=== PATIENT | male | born 1945 | race Caucasian/White ===

== ENCOUNTER 2020-10-19 00:27 | Inpatient (IN) | payer OTHER, MEDICARE ==
[~2020-10-19] VITALS: Ht 172.7 cm; Wt 56.7 kg
[~2020-10-19 00:27] MED LIST: ASPI325 PO; BACL10 PO; CLOP75 PO; HYDACE5 PO; LISI5 PO; MARIJUANA INH; METO50 PO; NICO21TP TOP; NORT25 PO; Prednisone20 MG PO; ROSU10TA PO; SIMV10 PO
[2020-10-19 02:02] LABS: Mean Corpuscular HGB 36.1 pg (26.0-34.0); Mean Corpuscular HGB Conc 30.7 g/dL (31.5-36.5); Mean Corpuscular Volume 118 fL (80-100); Mean Platelet Volume 11.2 fL (9.1-12.4); NRBC ABSOLUTE 0.98 K/mm3 (0.00-0.02); RDW Coefficient Variation 17.2 % (11.7-14.2); RDW Standard Deviation 70.4 fL (35.1-46.3); Red Blood Cell Count 0.97 M/mm3 (4.30-5.90)
[2020-10-19 02:08] LABS: Platelet Count 50 K/mm3 (150-400); White Blood Cell Count 95.34 K/mm3 (4.00-11.30)
[2020-10-19 02:09] LABS: Hematocrit 11.4 % (37.0-53.0); Hemoglobin 3.5 g/dL (13.5-17.5)
[2020-10-19 02:14] LABS: International Normalized Ratio 1.7; Prothrombin Time Results 17.7 Sec (9.7-11.5)
[2020-10-19 02:17] LABS: Alanine Aminotransfer (ALT/SGP 67 U/L (12-78); Albumin, Blood 2.3 g/dL (3.4-5.0); Albumin/Globulin Ratio 0.5 (0.8-1.8); Alk Phos 69 U/L (50-136); Anion Gap 12 mmol/L (6-16); Aspartate Aminotrans (AST/SGOT 136 U/L (12-37); Bilirubin, Total 0.8 mg/dL (0.1-1.0); Blood Urea Nitrogen 30 mg/dL (8-24); Bun/Creatinine Ratio 36.4 (12.0-20.0); CO2, Blood 21 mmol/L (21-32); Chloride, Blood 110 mmol/L (98-108); Creatinine, Blood 0.82 mg/dL (0.60-1.20); Globulin, Blood 4.3 g/dL (2.2-4.0); Glomerular Filtration Rate >60 (60-); Glucose, Blood 149 mg/dL (70-99); Potassium, Blood 3.8 mmol/L (3.5-5.5); Sodium, Blood 143 mmol/L (136-145); Total Protein, Blood 6.6 g/dL (6.4-8.2); Troponin I 0.074 ng/mL (0.000-0.040)
[2020-10-19 02:23] LABS: Ethanol (Alcohol), Blood, Med <3 mg/dL; Magnesium, Blood 2.6 mg/dL (1.6-2.4)
[2020-10-19 02:28] LABS: BASOPHILS PERCENT MAN 0 % (0-2); BLASTS PERCENT MAN 42 % (0-0); EOSINOPHILS PERCENT MAN 0 % (0-6); LYMPHOCYTES ABSOLUTE MAN 26.69 K/mm3 (0.84-5.20); LYMPHOCYTES PERCENT MAN 28 % (21-46); MONOCYTES ABSOLUTE MAN 24.78 K/mm3 (0.16-1.47); MONOCYTES PERCENT MAN 26 % (4-13); MYELOCYTE ABSOLUTE MAN 0.95 K/mm3 (0.00-0.00); MYELOCYTE PERCENT MAN 1 % (0-0); PROMYELOCYTE ABSOLUTE MAN 0.95 K/mm3 (0.00-0.00); PROMYELOCYTE PERCENT MAN 1 % (0-0); SEG NEUTROPHILS PERCENT MAN 2 % (41-73); TOTAL CELLS COUNTED 100
[2020-10-19] MEDS ORDERED: AMLO5 PO (03:35)
[2020-10-19] MEDS ORDERED: PROP10 PO (03:35)
[2020-10-19 05:10] LABS: Influenza A, PCR Negative (NEGATIVE); Influenza B, PCR Negative (NEGATIVE); Resp Syncytial Virus, PCR Negative (NEGATIVE); SARS-Cov-2 (COVID-19) PCR, MMC Negative (NEGATIVE)
[2020-10-19 06:47] LABS: Anion Gap 9 mmol/L (6-16); Blood Urea Nitrogen 27 mg/dL (8-24); Bun/Creatinine Ratio 38.2 (12.0-20.0); CO2, Blood 20 mmol/L (21-32); Calcium, Blood 7.2 mg/dL (8.5-10.1); Chloride, Blood 115 mmol/L (98-108); Creatinine, Blood 0.71 mg/dL (0.60-1.20); Glomerular Filtration Rate >60 (60-); Glucose, Blood 157 mg/dL (70-99); Potassium, Blood 3.8 mmol/L (3.5-5.5); Sodium, Blood 144 mmol/L (136-145)
[2020-10-19 06:51] LABS: Source, Urine Catheter
[2020-10-19 06:59] LABS: Bilirubin, Urine Neg (Neg); Blood, Urine 3+ (Neg); Glucose Qualitative, Urine Neg (Neg); Ketones, Urine Neg (Neg); Leukocyte Esterase, Urine Neg (Neg); Nitrite, Urine Neg (Neg); Protein, Urine 1+ (Neg); Specific Gravity, Urine 1.015 (1.003-1.022); Urobilinogen, Urine 1+ (Normal)
[2020-10-19 07:04] LABS: Appearance, Urine Clear (Clear); Color, Urine Yellow (P-Yellow)
[2020-10-19 07:06] LABS: White Blood Cells, Urine 0-2 /hpf (0-5)
[2020-10-19 07:07] LABS: Bacteria Few /hpf; Squamous Epithelial Cells Rare /hpf (Few)
--- NOTE | 2020-10-19 08:29 | NUR ---
PT RECEIVED FROM ED WITH LEILA AND CALLIE IN ATTENDANCE WITH 3RD BAG OF BLOOD INFUSING. PT IN SEVERE RESPIRATORY DISTRESS, FIDGETY AND UNCOMFORTALBE. UNABLE TO ANSWER QUESTIONS, OTHER THAN "YES" TO HIS NAME. CONTACTED, ORDERS RECEIVED FOR LASIX, BIPAP, AND POSEY. PHONE CALL TO TO DISCUSS CARE. PALLIATIVE CARE CALLED IN, ROSALINDA ARRIVES. IV MORPHINE AND ATIVAN GIVEN FOR PT RELIEF. BREATHING AT 32, RESTLESS IN BED. AFTER MEDICATION PT HAS SETTLED IN AND IS BREATHING AT 28 WITH BIPAP. PT NOTED TO GO IN A BIJEMINAL RHYTHM DURING HIS AGITATION. PT NOW RUNNING LOW 100'S, BP ELEVATED. TEMP 99.0 VIA TEMP PROBE.
--- NOTE | 2020-10-19 08:30 | NUR ---
PT ADMITTED TO ICU IN SEVERE RESPIRATORY DISTRESS. PT CONFUSED AND AGITATED-UNABLE TO PERFORM SUICIDE RISK ASSESSMENT AT THIS TIME.
--- NOTE | 2020-10-19 08:35 | NUR ---
PT MADE COMFORT CARE STATUS. PT MADE HIGH RISK FOR SUICIDE BECAUSE HE WAS NOT ABLE TO ANSWER QUESTIONS WHEN THE INITIAL ASSESSMENT WAS DONE. HE IS NOT ABLE TO ANSWER ANY QUESTIONS AT THIS TIME. PT HAS BEEN MADE COMFORT CARE BY DR. PEÑA AND DOES NOT NEED MONITIORING/FURTHER SUICIDE PRECAUTIONS.
--- NOTE | 2020-10-19 08:53 | NUR ---
Called to ICU 4 for assistance with Omari who is extremely aggitated and restless and confused. Nursing and Dr. Magdaleno at bedside. Dr. Magdaleno has just spoken with pt's who has opted for comfort care. Dr. Magdaleno states pathologist just contacted her shortly before my arrival and pt has acute leukemia. Emotional support given to Omari. Stayed at his bedside while nursing gave morphine and ativan IV. Pt experienced relief from aggitation and restlessness after medications were administered. Pt repositioned for comfort. He is currently looking more relaxed at this time. Spoke with Dr. Magdaleno who reuqest that this gag writer place comfort care order set. Will check in with pt and nursing in a little while and call his with an update. PC to continue to follow. Omari has a history of HTN, RI, chronic pain, PTSD, dystonia dykinesia, TIAs, possible brain tumor. He has not had any recent medical care according to the admitting H&P. He has been increasing SOB, confused unable to perform his own ADLs and has had no appetite for the last few days. New diagnosis of leukemia. He has now been transitioned to comfort care.
[2020-10-19 09:11] LABS: Source, Urine Catheter
[2020-10-19 09:16] LABS: Bilirubin, Urine Neg (Neg); Blood, Urine 2+ (Neg); Glucose Qualitative, Urine Neg (Neg); Ketones, Urine Neg (Neg); Leukocyte Esterase, Urine Neg (Neg); Nitrite, Urine Neg (Neg); Protein, Urine Neg (Neg); Specific Gravity, Urine 1.015 (1.003-1.022); Urobilinogen, Urine NORM (Normal)
[2020-10-19 09:22] LABS: Appearance, Urine Clear (Clear); Color, Urine Yellow (P-Yellow)
[2020-10-19 09:23] LABS: White Blood Cells, Urine 0-2 /hpf (0-5)
[2020-10-19 09:24] LABS: Bacteria Rare /hpf; Squamous Epithelial Cells Rare /hpf (Few)
--- NOTE | 2020-10-19 11:55 | NUR ---
REPORT GIVEN TO HEIDI CHOUDHURY ON MEDICAL FLOOR. PT IS CURRENTLY RESTING MEDICATED, ON 2L O2 VIA NC, SATS 97%. BREATHING EASIER, PT CONTINUES WITH POSEY IN PLACE. HEIDI PERALTA SPOKE WITH PATIENTS AND UPDATED HER ON THE SITUATION AND THE TRANSFER TO MEDICAL FLOOR.
--- NOTE | 2020-10-19 13:46 | NUR ---
Omari is now in room 342 and when this assembly instructions writer checked on him at 1300 he was resting comfortably. Resp are not labored at this time. He doesn't appear to be in any discomfort. Spoke with Dr. Magdaleno who reports that she talked with Neyda, his , about his leukemia diagnosis and Neyda has questions about the next steps. Phone call to Neyda. Answered her questions. She would like information on home pricing. The home good list was sent to her. Emotional support given. They live in [place] and it is a 100 mile round trip from their home to [facility]. She reports that the last couple days of caring for Omari at home were very difficult and she was very grateful that he was able to be admitted and is resting comfortably. Briefly discussed comfort care in the hospital vs. hospice at home. At this time Nedya is not interested in hospice at home. Explained to her that with his rapid decline he may likely pass away in the hospital. If he stabilizes we will need to revisit hospice as an option. She voiced understanding. Encouraged Nyeda to call PC or medical floor for any further questions, updates, or if she would like us to go hold the phone up to his ear in his room for her to talk to him. PC will continue to follow for symptom management and family support.
--- NOTE | 2020-10-19 15:58 | NUR ---
Checked in on Omari again. He is resting and appears comfortable at this time. Neyda called back to the PC office and is requesting [facility] in [place] for the mortuary when Omari passes. rn progressive care Kelly and nursing supervisor files updated on mortuary choice. Neyda has no further questions or concerns at this time. PC to continue to follow.
--- NOTE | 2020-10-19 16:44 | NUR ---
SHIFT SUMMARY RECEIVED PT TO 342 THIS AFTERNOON FROM ICU 4. RECEIVED REPORT FROM CIERA GORDON. PT ADMITTED AFTER BEING SENT TO ER BY FOR AMS, SOB, AND INCREASED AGITATION. PT WITH POOR APPETITE AND SEVERE AMS. PT FOUND TO HAVE LEUKEMIA AND CHANGED TO C/C BY PT'S . PALLIATIVE CARE RN HERE TO CK ON PT AFTER ARRIVAL TO . PT'S CALLED BY DR PEÑA AND PALLIATIVE CARE WELL. UPDATED AND QUESTIONS ANS. PT HAS CONTINUED TO REST QUIETLY TO PRESENT. WILL CONTINUE TO MONITOR.
--- NOTE | 2020-10-19 18:39 | NUR ---
PT BECOMING RESTLESS AND AGITATED, MOANING WITH REPOSITIONING. PT MEDICATED FOR PAIN AND AGITATION. NOW APPEARS TO BE CALM, AND RESTING QUIETLY.
--- NOTE | 2020-10-19 19:38 | NUR ---
RESTNG QUIETLY.CALL LIGHT IN REACH
--- NOTE | 2020-10-20 00:56 | NUR ---
RESTING QUIETLY. POSYE DRAINING. NO NOTED S/S ACUTE DISTRESS. CALL LIGHT IN REACH
--- NOTE | 2020-10-20 00:57 | NUR ---
CONTINUES TO REST QUIETLY. NO S/S PAIN. CALL LIGHT IN REACH
--- NOTE | 2020-10-20 03:52 | NUR ---
WAS CALLING OUT, SEEMED IN PAIN, MEDICATION ADMINISNTERED - SEE MAR FOR DETAILS. CURRENTLY RSTING QUIETLY. CALL LIGHT IN REACH
--- NOTE | 2020-10-20 03:53 | NUR ---
RESTING QUIETLY. CALL LIGHT IN REACH
--- NOTE | 2020-10-20 04:05 | NUR ---
SHIFT SUMMARY CONTINUES ON COMFORT CARE. HAS RECEIVED ANALGESIC EARLIER FOR APPARENT EPISODE OF PAIN AND AGITATION. AFTER PAIN MED GIVEN, SEEMED TO CALM AND IN CURRENTLY RESTING QUIETLY. CALL LIGHT IN REACH. RAILS UP X 3.
--- NOTE | 2020-10-20 06:26 | NUR ---
MEDICATED FOR PAIN. VERBAL REASSURANCE GIVEN. REPOSITIONED. CALL LIGHT IN REACH
--- NOTE | 2020-10-20 17:05 | NUR ---
SHIFT SUMMARY PT MEDICATED FOR PAIN X2 THIS SHIFT AND ANXIETY X1 PER EMAR. PT HAS BEEN IN BED, BUT ATTEMPTED TO LEAVE THE BED MULTIPLE TIMES THIS SHIFT WITHOUT STAFF. THIS RN SPOKE WITH PT'S VIA THE PHONE WHO STATED SHE HOPES TO SEE HIM HERE SOON. PT REPOSITIONED FREQUENTLY. NO VISITORS IN TODAY. PT IS IN THE BED, ALARM ON, CALL LIGHT IN REACH.
--- NOTE | 2020-10-20 19:10 | NUR ---
RESTING WITH DEEP RESPIRATIONS. REPOSITIONED. POSEY DRAINING. CALL LIGHT IN REACH
--- NOTE | 2020-10-20 22:03 | NUR ---
RESTING QUIETLY. DEEP RESPS. NO NOTED S/S PAIN. CALL LIGHT IN REACH. HOB ELEVATED FOR COMFORT
--- NOTE | 2020-10-20 23:03 | NUR ---
RESTING QUIETLY. CALL LIGHT IN REACH
--- NOTE | 2020-10-21 03:55 | NUR ---
RESTING QUIETLY. CALL LIGHT IN REACH
--- NOTE | 2020-10-21 03:56 | NUR ---
RESTING QUIETLY, NOTE PT TURNING SELF AT TIMES DURING ROUNDING. CALL LIGHT IN REACH
--- NOTE | 2020-10-21 03:57 | NUR ---
RESTING QUIETLY ON BACK. CALL LIGHT IN REACH
--- NOTE | 2020-10-21 05:37 | NUR ---
REPOSITIONED. CONTINUES TO REST QUIETLY. NO NOTED MOANING. NO NOTED SIGNS OF PAIN. CALL LIGHT IN REACH
--- NOTE | 2020-10-21 17:33 | NUR ---
SHIFT SUMMARY PATIENT IS COMFORT CARE. PATIENT TURNS HEAD WHEN FIRST SPOKEN TO UPON ENTERING THE ROOM, THEN UNABLE TO MAINTAIN ATTENTION. PATIENT WITHOUT SIGNS OF RECOGNITION OR RESPONSE TO QUESTIONS THIS SHIFT. PATIENT MEDICATED 1X FOR PAIN AND 1X FOR AGITATION THIS SHIFT. PATIENT TURNED REGULARLY THROUGHOUT THIS SHIFT. PATIENT'S AT BEDSIDE THIS AFTERNOON. PATIENT CURRENTLY LAYING IN BED RESTING.
--- NOTE | 2020-10-21 19:22 | NUR ---
RESTING QUIETLY. NO NOTED S/S ACUTE DISTRESS. CALL LIGHT IN REACH
--- NOTE | 2020-10-21 22:55 | NUR ---
RESTING QUIETLY, WAS REPOSITIONED. CALL LIGHT IN REACH
--- NOTE | 2020-10-21 22:56 | NUR ---
DURING POSITIONING, NOTED TEAR IN RIGHT EYE, PAIN MED ADMINISTERED - SEE DEC. POSEY DRAINING
--- NOTE | 2020-10-22 00:31 | NUR ---
RESTING QUIETLY. MUSIC ON. CALL LIGHT IN REACH
--- NOTE | 2020-10-22 02:01 | NUR ---
RESTING QUIETLY. CALL LIGHT IN REACH
--- NOTE | 2020-10-22 04:10 | NUR ---
RESTING QUIETLY. MUSIC ON. CALL LIGHT IN REACH.
--- NOTE | 2020-10-22 06:19 | NUR ---
RESTING QUIETLY, RESPS NOT DEEP AND OCCASIONALLY IRREGULAR, BUT APPEARS NOT TO BE IN PAIN. COMFORT MEASURES CONTINUE. CALL LIGHT IN REACH
--- NOTE | 2020-10-22 10:20 | NUR ---
AT APPROX. 0709 STAFF AID CALLED ME INTO PATIENTS ROOM TO CONFIRM TOD. PT WAS INFACT NOT BREATHING AND WITHOUT A PULSE. TOD CALLED AT [id number]. ASSISTANT PASTRY CHEF NOTIFIED AND FAMILY CALLED. PT IV LINES AND CATH WERE DC'S AND PT WAS THEN CARED FOR BY AID.
== END 2020-10-22 07:09 | DRG 834 ==
LOC: ER 00:27 → ICUE 04:31 → ERHOLD 04:31 → ICUE 07:40 → MEDS 12:02
PROVIDERS: Emergency Medicine; Internal Medicine; ADMIT Internal Medicine
PROC: 30233N1 Transfusion of Nonautologous Red Blood Cells into Peripheral Vein, Percutaneous Approach (ICD-10-PCS; principal; 2020-10-19)
DX: C95.00 Acute leukemia of unspecified cell type not having achieved remission (principal); A41.9 Sepsis, unspecified organism; R65.21 Severe sepsis with septic shock; G92 Toxic encephalopathy; J18.9 Pneumonia, unspecified organism; J96.01 Acute respiratory failure with hypoxia; R64 Cachexia; Z68.1 Body mass index [BMI] 19.9 or less, adult; Z20.822 Contact with and (suspected) exposure to COVID-19; Z66 Do not resuscitate; Z51.5 Encounter for palliative care; D69.6 Thrombocytopenia, unspecified; D63.0 Anemia in neoplastic disease; F43.10 Post-traumatic stress disorder, unspecified; I10 Essential (primary) hypertension; Z77.098 Contact with and (suspected) exposure to other hazardous, chiefly nonmedicinal, chemicals; I25.2 Old myocardial infarction; Z86.73 Personal history of transient ischemic attack (TIA), and cerebral infarction without residual deficits; Z95.5 Presence of coronary angioplasty implant and graft; Z87.891 Personal history of nicotine dependence
CPT/HCPCS: 0241U; 36415; 36430; 51702; 51798; 71045; 80048; 80053; 81001; 81003; 82131; 82140; 82340; 82436; 82507; 82570; 83605; 83690; 83735; 83880; 83935; 83945; 84105; 84133; 84145; 84300; 84392; 84484; 84560; 85025; 85610; 86850; 86900; 86901; 86920; 87040; 93005; 93010; 96365-59; 96367-59; 96375-59; 99285-25; A9270; G0480; J0696; J1940; J2060; J2250; J2270; J3370; J7030; J7120; P9016